=== PATIENT | male | born 1955 | race Caucasian/White ===

== ENCOUNTER → 2024-11-13 08:25 | Outpatient (REF) | payer BC, MEDICARE, SELFPAY | LOC: PAVMRI 08:25 | PROVIDERS: ATTENDING PHYSICIAN Internal Medicine; FAMILY PHYSICIAN Family Medicine | DX: I35.9 Nonrheumatic aortic valve disorder, unspecified (principal) | CPT/HCPCS: 75561; 75565; A9585 ==